=== PATIENT | male | born 1965 | race Two or more races ===

== ENCOUNTER 2020-08-09 07:22 | Day surgery (SDC) | payer OTHER | END 2020-08-09 12:20 | disposition home or self-care (01) | LOC: AMB-ENDOS 07:22 | PROVIDERS: ATTEND Surgery | DX: D12.3 Benign neoplasm of transverse colon (principal); D12.4 Benign neoplasm of descending colon; D12.8 Benign neoplasm of rectum; Z20.822 Contact with and (suspected) exposure to COVID-19 ==